=== PATIENT | female | born 1980 | race Caucasian/White ===

== ENCOUNTER → 2016-08-19 | Outpatient (CLI) | payer OTHER | LOC: NM 07:39 | DX: M84.372D Stress fracture, left ankle, subsequent encounter for fracture with routine healing (principal); R93.8 Abnormal findings on diagnostic imaging of other specified body structures | CPT/HCPCS: 78315; A9503 ==

== ENCOUNTER → 2020-04-18 | Outpatient (CLI) | payer OTHER ==
[~2020-04-18] MED LIST: ALEVE220 MG PO; ANUSOL-HC25 MG PR; CETIRIZINE HCL10 MG PO; COLACE 100MG C100 MG PO; FLUTICASONE SPRAY; HEMORRHOIDAL P1 EAC1 TP; IBU800 MG PO; LEVOTHYROXINE100 MCG PO; MIRALAX 119 GR119 GM PO; PERCOCET 5-3251 EACH PO; PROCTOFOAM 15 G15 GM TP; SINGULAIR10 MG PO; SYNTHROID112 MCG PO; ZANTAC150 MG PO
== END ==
LOC: HEART 5 10:33
DX: R07.89 Other chest pain (principal)
CPT/HCPCS: 93306

== ENCOUNTER → 2021-08-16 | Outpatient (CLI) | payer OTHER | LOC: RAD 13:12 | DX: R06.00 Dyspnea, unspecified (principal) | CPT/HCPCS: 71046 ==

== ENCOUNTER → 2021-08-16 | Outpatient (CLI) | payer OTHER | LOC: HEART 5 10:59 | DX: R06.00 Dyspnea, unspecified (principal) | CPT/HCPCS: 94010 ==

== ENCOUNTER 2021-08-30 11:09 | Observation (INO) | payer OTHER ==
[~2021-08-30] VITALS: Ht 162.6 cm; Wt 95.7 kg
[~2021-08-30 11:09] MED LIST changes: -LEVOTHYROXINE100 MCG PO; +LEVOTHYROXINE112 MCG PO
[2021-08-30 12:17] LABS: RED BLOOD COUNT 5.33 M/UL (4.00-5.10); WHITE BLOOD COUNT 10.7 K/UL (4.5-11.0)
[2021-08-30 12:52] LABS: BUN/CREATININE RATIO 19 (0-10)
[2021-08-30] MEDS ORDERED: LORATADINE10 MG PO (15:09)
[2021-08-31 03:20] LABS: HEMOGLOBIN 14.5 gm/dl (12.3-15.3); RED BLOOD COUNT 4.82 M/UL (4.00-5.10); WHITE BLOOD COUNT 11.2 K/UL (4.5-11.0)
[2021-08-31 03:35] LABS: BUN/CREATININE RATIO 22 (0-10)
[2021-09-01] MEDS ORDERED: PROTONIX 40 MG40 M1 PO (08:16)
== END 2021-09-01 11:19 | disposition home or self-care (01) ==
LOC: ER1 11:09 → CDU 14:00 → MED SURG 4 14:00
PROVIDERS: Emergency Medicine; Physician Assistant Medical; ADMIT Internal Medicine
DX: R07.89 Other chest pain (principal); E03.9 Hypothyroidism, unspecified; E66.9 Obesity, unspecified; Z68.36 Body mass index [BMI] 36.0-36.9, adult; Z79.890 Hormone replacement therapy
CPT/HCPCS: ECHO; 36415; 71045; 78452; 80048; 80053; 82550; 82553; 83735; 84439; 84443; 84484; 85025; 85027; 93005; 93017; 93306; 94760; 99285; A9502; G0378; J2785